=== PATIENT | female | born 1985 | race Caucasian/White ===

== ENCOUNTER → 2021-03-12 | Outpatient (REF) | payer OTHER | LOC: M SFHCWAGY 12:25 | PROVIDERS: ATTEND Advanced Practice Midwife | DX: Z12.4 Encounter for screening for malignant neoplasm of cervix (principal); Z77.9 Other contact with and (suspected) exposures hazardous to health; R87.610 Atypical squamous cells of undetermined significance on cytologic smear of cervix (ASC-US) | CPT/HCPCS: 87624; G0123 ==

== ENCOUNTER → 2023-05-19 | Outpatient (REF) | payer OTHER ==
[~2023-05-19] MED LIST: MOM30SS PO; MOTR200T44 PO; TYLE325T5 PO
== END ==
LOC: M PLALAB 15:11
PROVIDERS: ATTEND Advanced Practice Midwife
DX: Z12.4 Encounter for screening for malignant neoplasm of cervix (principal); R87.5 Abnormal microbiological findings in specimens from female genital organs
CPT/HCPCS: 87624; G0123

== ENCOUNTER → 2024-06-09 | Outpatient (REF) | payer OTHER, BC | LOC: M SFHCWAGY 17:37 | PROVIDERS: ATTEND Advanced Practice Midwife | DX: Z12.4 Encounter for screening for malignant neoplasm of cervix (principal) | CPT/HCPCS: 87624; G0123 ==

== ENCOUNTER → 2025-04-21 | Outpatient (CLI) | payer BC | LOC: M WHC 07:50 | PROVIDERS: ATTEND Advanced Practice Midwife | DX: Z12.31 Encounter for screening mammogram for malignant neoplasm of breast (principal); R92.323 Mammographic fibroglandular density, bilateral breasts ==